=== PATIENT | female | born 1985 | race Caucasian/White ===

== ENCOUNTER 2016-11-30 07:22 | Emergency (ER) | payer OTHER ==
[~2016-11-30] VITALS: Ht 160 cm; Wt 122.7 kg
[~2016-11-30 07:22] MED LIST: BIRTH CONTROL PILL; GLUCOPHAGE500 MG/TAB PO; METFORMIN HCL500 M1 PO; MOTRIN 800800 MG/TAB PO; PRILOSEC 20MG20 MG PO; SERTRALINE; SYNTHROID PO; SYNTHROID0.2 MG/TAB PO; VICODIN 5/5001 UDTAB PO; ZEGERID 20 MG-11 CAP PO; ZOLOFT 100MG100 MG PO
[2016-11-30 07:24] VITALS: BP 144/79; TEMP 98.4
[2016-11-30] MEDS ORDERED: EPIPEN 2-PAK1 MG/ML IM (07:55)
[2016-11-30] MEDS ORDERED: PREDNISONE20 MG PO (07:55)
[2016-11-30 08:21] VITALS: PULSE 79
== END 2016-11-30 08:22 | disposition home or self-care (01) ==
LOC: COL.ER 07:22
DX: R21 Rash and other nonspecific skin eruption (principal); E03.9 Hypothyroidism, unspecified; F41.9 Anxiety disorder, unspecified
CPT/HCPCS: J0171; J7512

== ENCOUNTER → 2017-06-23 | Outpatient (CLI) | payer OTHER ==
[~2017-06-23] VITALS: Ht 160 cm; Wt 123.6 kg
[~2017-06-23] MED LIST changes: +EPIPEN 2-PAK1 MG/ML IM; +PREDNISONE20 MG PO
[2017-06-23 08:21] VITALS: BP 106/50; PULSE 76
== END ==
LOC: LIGHT 08:02
DX: K21.9 Gastro-esophageal reflux disease without esophagitis (principal); F33.9 Major depressive disorder, recurrent, unspecified; M54.5 Low back pain; F50.81 Binge eating disorder; Z68.42 Body mass index [BMI] 45.0-49.9, adult; Z71.3 Dietary counseling and surveillance

== ENCOUNTER → 2017-07-06 | Outpatient (CLI) | payer OTHER | LOC: LIGHT 11:06 | DX: Z01.89 Encounter for other specified special examinations (principal) ==

== ENCOUNTER → 2017-07-22 | Outpatient (CLI) | payer OTHER ==
[~2017-07-22] VITALS: Ht 160 cm; Wt 127.7 kg
[2017-07-22 16:53] VITALS: BP 124/68; PULSE 76
== END ==
LOC: LIGHT 10:09
DX: K21.9 Gastro-esophageal reflux disease without esophagitis (principal); F33.9 Major depressive disorder, recurrent, unspecified; M54.5 Low back pain; F50.81 Binge eating disorder; Z68.42 Body mass index [BMI] 45.0-49.9, adult; Z71.3 Dietary counseling and surveillance
CPT/HCPCS: G0463

== ENCOUNTER → 2017-08-26 | Outpatient (CLI) | payer OTHER ==
[~2017-08-26] VITALS: Ht 160 cm; Wt 125.0 kg
[~2017-08-26] MED LIST changes: +PHENTERMINE15 MG PO
[2017-08-26 16:21] VITALS: BP 128/78; PULSE 64
== END ==
LOC: LIGHT 10:38
DX: K21.9 Gastro-esophageal reflux disease without esophagitis (principal); F33.9 Major depressive disorder, recurrent, unspecified; M54.5 Low back pain; F50.81 Binge eating disorder; Z68.42 Body mass index [BMI] 45.0-49.9, adult; Z71.3 Dietary counseling and surveillance
CPT/HCPCS: G0463

== ENCOUNTER → 2017-09-09 | Outpatient (CLI) | payer OTHER ==
[~2017-09-09] VITALS: Ht 160 cm; Wt 124.3 kg
[~2017-09-09] MED LIST changes: +FASTIN30 MG PO; -PHENTERMINE15 MG PO
[2017-09-09 17:05] VITALS: BP 106/56; PULSE 84
== END ==
LOC: LIGHT 15:36
DX: K21.9 Gastro-esophageal reflux disease without esophagitis (principal); F33.9 Major depressive disorder, recurrent, unspecified; M54.5 Low back pain; F50.81 Binge eating disorder; Z68.42 Body mass index [BMI] 45.0-49.9, adult; Z71.3 Dietary counseling and surveillance
CPT/HCPCS: G0463

== ENCOUNTER → 2017-10-14 | Outpatient (CLI) | payer OTHER ==
[~2017-10-14] VITALS: Ht 160 cm; Wt 119.7 kg
[2017-10-14 16:27] VITALS: BP 110/54; PULSE 84
== END ==
LOC: LIGHT 14:27
DX: K21.9 Gastro-esophageal reflux disease without esophagitis (principal); F33.9 Major depressive disorder, recurrent, unspecified; M54.5 Low back pain; F50.81 Binge eating disorder; Z68.42 Body mass index [BMI] 45.0-49.9, adult; Z71.3 Dietary counseling and surveillance
CPT/HCPCS: G0463

== ENCOUNTER → 2017-11-18 | Outpatient (CLI) | payer OTHER ==
[~2017-11-18] VITALS: Ht 160 cm; Wt 116.8 kg
[2017-11-18 08:10] VITALS: BP 110/60; PULSE 72
== END ==
LOC: LIGHT 08:05
DX: K21.9 Gastro-esophageal reflux disease without esophagitis (principal); F33.9 Major depressive disorder, recurrent, unspecified; M54.5 Low back pain; F50.81 Binge eating disorder; Z68.42 Body mass index [BMI] 45.0-49.9, adult; Z71.3 Dietary counseling and surveillance
CPT/HCPCS: G0463

== ENCOUNTER → 2017-12-23 | Outpatient (CLI) | payer OTHER ==
[~2017-12-23] VITALS: Ht 160 cm; Wt 112.9 kg
[2017-12-23 15:25] VITALS: BP 112/62; PULSE 88
== END ==
LOC: LIGHT 14:32
DX: K21.9 Gastro-esophageal reflux disease without esophagitis (principal); F33.9 Major depressive disorder, recurrent, unspecified; M54.5 Low back pain; F50.81 Binge eating disorder; Z68.41 Body mass index [BMI] 40.0-44.9, adult; Z71.3 Dietary counseling and surveillance
CPT/HCPCS: G0463

== ENCOUNTER → 2018-01-27 | Outpatient (CLI) | payer OTHER ==
[~2018-01-27] VITALS: Ht 160 cm; Wt 111.1 kg
[2018-01-27 15:37] VITALS: BP 120/58; PULSE 80
== END ==
LOC: LIGHT 11:22
DX: K21.9 Gastro-esophageal reflux disease without esophagitis (principal); F33.9 Major depressive disorder, recurrent, unspecified; M54.5 Low back pain; F50.81 Binge eating disorder; Z68.41 Body mass index [BMI] 40.0-44.9, adult; Z71.3 Dietary counseling and surveillance
CPT/HCPCS: G0463

== ENCOUNTER → 2018-03-10 | Outpatient (CLI) | payer OTHER ==
[~2018-03-10] VITALS: Ht 160 cm; Wt 107.7 kg
[2018-03-10 09:49] VITALS: BP 114/70; PULSE 88
== END ==
LOC: LIGHT 09:47
DX: K21.9 Gastro-esophageal reflux disease without esophagitis (principal); F32.9 Major depressive disorder, single episode, unspecified; M54.5 Low back pain; F50.81 Binge eating disorder
CPT/HCPCS: G0463

== ENCOUNTER → 2018-04-28 | Outpatient (CLI) | payer OTHER ==
[~2018-04-28] VITALS: Ht 160 cm; Wt 106.6 kg
[2018-04-28 10:00] VITALS: BP 116/56; PULSE 80
== END ==
LOC: LIGHT 09:24
DX: K21.9 Gastro-esophageal reflux disease without esophagitis (principal); F32.9 Major depressive disorder, single episode, unspecified; M54.5 Low back pain; F50.81 Binge eating disorder; E66.01 Morbid (severe) obesity due to excess calories; Z68.41 Body mass index [BMI] 40.0-44.9, adult; Z71.3 Dietary counseling and surveillance
CPT/HCPCS: G0463

== ENCOUNTER → 2018-06-23 | Outpatient (CLI) | payer OTHER ==
[~2018-06-23] VITALS: Ht 160 cm; Wt 105.5 kg
[2018-06-23 09:19] VITALS: BP 110/58; PULSE 68
== END ==
LOC: LIGHT 09:16
DX: K21.9 Gastro-esophageal reflux disease without esophagitis (principal); F32.9 Major depressive disorder, single episode, unspecified; M54.5 Low back pain; Z68.41 Body mass index [BMI] 40.0-44.9, adult; Z71.3 Dietary counseling and surveillance
CPT/HCPCS: G0463

== ENCOUNTER → 2018-08-11 | Outpatient (CLI) | payer OTHER ==
[~2018-08-11] VITALS: Ht 160 cm; Wt 104.3 kg
[~2018-08-11] MED LIST changes: +DESYREL 50MG50 MG PO
[2018-08-11 09:35] VITALS: BP 120/80; PULSE 89
== END ==
LOC: LIGHT 09:24
DX: K21.9 Gastro-esophageal reflux disease without esophagitis (principal); F32.9 Major depressive disorder, single episode, unspecified; M54.5 Low back pain; F50.81 Binge eating disorder; Z68.41 Body mass index [BMI] 40.0-44.9, adult; Z71.3 Dietary counseling and surveillance
CPT/HCPCS: G0463

== ENCOUNTER → 2018-09-29 | Outpatient (CLI) | payer OTHER ==
[~2018-09-29] VITALS: Ht 160 cm; Wt 104.3 kg
[~2018-09-29] MED LIST changes: +ADIPEX-P37.5 MG PO
[2018-09-29 09:06] VITALS: BP 100/50; PULSE 84
== END ==
LOC: LIGHT 09:00
DX: K21.9 Gastro-esophageal reflux disease without esophagitis (principal); F32.9 Major depressive disorder, single episode, unspecified; M54.5 Low back pain; F50.81 Binge eating disorder; Z68.41 Body mass index [BMI] 40.0-44.9, adult; Z71.3 Dietary counseling and surveillance
CPT/HCPCS: G0463

== ENCOUNTER → 2018-10-27 | Outpatient (CLI) | payer OTHER ==
[~2018-10-27] VITALS: Ht 160 cm; Wt 101.8 kg
[2018-10-27 16:08] VITALS: BP 108/56; PULSE 88
== END ==
LOC: LIGHT 14:37
DX: K21.9 Gastro-esophageal reflux disease without esophagitis (principal); F32.9 Major depressive disorder, single episode, unspecified; M54.5 Low back pain; F50.81 Binge eating disorder; Z68.39 Body mass index [BMI] 39.0-39.9, adult; Z71.3 Dietary counseling and surveillance
CPT/HCPCS: G0463

== ENCOUNTER → 2019-01-05 | Outpatient (CLI) | payer OTHER ==
[~2019-01-05] VITALS: Ht 160 cm; Wt 99.8 kg
[2019-01-05 08:10] VITALS: BP 112/56; PULSE 88
== END ==
LOC: LIGHT 08:01
DX: K21.9 Gastro-esophageal reflux disease without esophagitis (principal); F31.9 Bipolar disorder, unspecified; M54.5 Low back pain; F50.81 Binge eating disorder
CPT/HCPCS: G0463

== ENCOUNTER → 2019-04-27 | Outpatient (CLI) | payer OTHER ==
[~2019-04-27] VITALS: Ht 160 cm; Wt 95.9 kg
[~2019-04-27] MED LIST changes: +SYNTHROID0.175 MG PO; -SYNTHROID0.2 MG/TAB PO
[2019-04-27 09:13] VITALS: BP 108/64; PULSE 80
== END ==
LOC: LIGHT 09:03
DX: K21.9 Gastro-esophageal reflux disease without esophagitis (principal); F32.9 Major depressive disorder, single episode, unspecified; M54.5 Low back pain; F50.81 Binge eating disorder; Z68.37 Body mass index [BMI] 37.0-37.9, adult; Z71.3 Dietary counseling and surveillance
CPT/HCPCS: G0463

== ENCOUNTER → 2019-08-10 | Outpatient (CLI) | payer OTHER ==
[~2019-08-10] VITALS: Ht 160 cm; Wt 93.2 kg
[~2019-08-10] MED LIST changes: +SAXENDA6 MG/ML SQ
[2019-08-10 09:15] VITALS: BP 104/54; PULSE 78
== END ==
LOC: LIGHT 09:02
DX: Z68.36 Body mass index [BMI] 36.0-36.9, adult (principal); K21.9 Gastro-esophageal reflux disease without esophagitis; M54.5 Low back pain; F50.81 Binge eating disorder
CPT/HCPCS: G0463

== ENCOUNTER → 2019-09-21 | Outpatient (CLI) | payer OTHER ==
[~2019-09-21] VITALS: Ht 160 cm; Wt 93.9 kg
[2019-09-21 09:10] VITALS: BP 116/50; PULSE 90
== END ==
LOC: LIGHT 09:00
DX: Z68.36 Body mass index [BMI] 36.0-36.9, adult (principal); M54.5 Low back pain; K21.9 Gastro-esophageal reflux disease without esophagitis; F50.81 Binge eating disorder
CPT/HCPCS: G0463

== ENCOUNTER → 2020-01-11 | Outpatient (CLI) | payer OTHER ==
[~2020-01-11] VITALS: Ht 160 cm; Wt 96.8 kg
[~2020-01-11] MED LIST changes: +TROKEND50 PO
[2020-01-11 09:38] VITALS: BP 96/56; PULSE 87
== END ==
LOC: LIGHT 10-19 11:12
DX: E66.8 Other obesity (principal); Z68.37 Body mass index [BMI] 37.0-37.9, adult; F50.81 Binge eating disorder; E88.81 Metabolic syndrome and other insulin resistance; K21.9 Gastro-esophageal reflux disease without esophagitis
CPT/HCPCS: G0463

== ENCOUNTER → 2020-04-25 | Outpatient (CLI) | payer OTHER ==
[~2020-04-25] VITALS: Ht 160 cm; Wt 100.2 kg
[2020-04-25 09:17] VITALS: BP 110/70; PULSE 68
[2020-05-06 09:05] VITALS: BP 124/52; PULSE 82
== END ==
LOC: LIGHT 02-29 11:11
DX: E66.01 Morbid (severe) obesity due to excess calories (principal); Z68.39 Body mass index [BMI] 39.0-39.9, adult; K21.9 Gastro-esophageal reflux disease without esophagitis; M54.5 Low back pain
CPT/HCPCS: G0463